=== PATIENT | female | born 1980 | race Caucasian/White ===

== ENCOUNTER 2023-04-24 08:54 | Outpatient (CLI) | payer OTHER, SELFPAY | END 2023-04-24 08:55 | disposition home or self-care (01) | LOC: NFLDREF 04-26 01:29 | PROVIDERS: PCP Physician Assistant Medical; Referring Provider Physician Assistant Medical; Visit Provider Physician Assistant Medical | DX: Z01.818 Encounter for other preprocedural examination (principal); R30.0 Dysuria; N30.00 Acute cystitis without hematuria | CPT/HCPCS: 87086 ==

== ENCOUNTER 2023-05-11 07:35 | Day surgery (SDC) | payer OTHER, SELFPAY ==
[2023-05-11] VITALS (17 sets, daily range): BP systolic 127–176; BP diastolic 71–104; PULSE 62–89; RESP 12–17; TEMP 36.6–36.9; O2SAT 92–96; BMI 34.8
[2023-05-11] MEDS: LACTATED RINGERS 1000 ML 1,000 ML 100 ML IV (08:40)
[2023-05-11] MEDS: CEFAZOLIN 2 GM INJ IVP (08:43)
[2023-05-11] MEDS: SODIUM CHLORIDE 0.9 % (FLUSH) 10 ML SYRINGE IVF (08:44)
[2023-05-11] MEDS: BUPIVACAINE 0.25% 30 ML INJECTION (09:40)
--- NOTE | 2023-05-11 09:50 | PM.GSPRC ---
Operative Note Pre-op diagnosis: 1. Right upper quadrant incisional hernia. 2. s/p open cholecystectomy. Post-op diagnosis: Same Type of Procedure: 1. Open right upper quadrant incisional hernia repair with mesh. Indications: 42-year-old female was seen in clinic with a right upper quadrant pain at her open cholecystectomy incision. Patient did not notice a bulge. She also noticed some bloating in that area. This has been bothering her for the last few years. She noticed that the pain gets worse with exercising. Patient gained some weight recently and noticed that the pain was more bothersome. On clinical exam she had a well-healed open cholecystectomy scar in the right upper quadrant. Patient's exam was limited due to her body habitus but With palpation of the medial scar there was an incisional bulge palpated. Patient was referred for a CT scan to evaluate her incisional hernia further. On her CT scan she was found to have at least 2 hernia defects in the medial part of her open cholecystectomy incision. Given patient's symptoms and her clinical exam and CT findings, an open incisional hernia repair was recommended. The procedure was discussed in detail. The risks associated procedure including infection, bleeding, injury to intra-abdominal organs, and hernia recurrence were all discussed with the patient, and she agreed to proceed. Procedure Description: After discussing the risks and benefits of the procedure, the patient signed informed consent.? The operative site was marked and the patient was brought to the operating room and placed on the operating table in supine position.? Care was taken to pad the patient's pressure points.?? The patient was then intubated by anesthesia.?? The operative site was then prepped and draped in the usual sterile fashion.? A time-out was then performed. Local anesthetic was injected at the surgical site. A medial right upper quadrant surgical incision was made with a scalpel through a previously well-healed surgical scar. Subcutaneous fat was divided with cautery down to the anterior fascia. A medial incisional hernia opening was identified. The fascia was grasped with Daniel clamps and preperitoneal space was developed for mesh placement. The fascia was palpated superior medially and inferior laterally, and 2 additional small openings were noted in the fascia superior medially. The 2 separate hernia openings were connected by less than 1 cm fascial bridge and this was divided to create a single common opening. Additional preperitoneal space was developed for mesh placement. Hemostasis was achieved with cautery. The common fascial defect was approximately 5 x 3 cm. When sufficient space was developed for mesh placement, an 8 cm in diameter Ventralex ST mesh was placed into the preperitoneal space and secured in place to the fascia with interrupted 0-0 Nurolon stitches. The anterior fascia was then closed over the mesh with a running 2-0 Vicryl suture. Additional local anesthetic was injected at the surgical site. Subcutaneous fat was reapproximated with interrupted 2-0 Vicryl sutures. The dermis was then reapproximated with interrupted 3-0 Vicryl sutures. The skin was closed with a running 4-0 Monocryl stitch. Steri-Strips and sterile dressing were placed over the incision. All counts were correct at the end of the case. ? The patient was then woken and transported to the recovery area in stable condition. ? The patient tolerated the procedure well. Findings: 3 fascial defects in the medial surgical incision, all connected into a common fascial defect. The hernia was repaired with mesh. [facility] Surgeon: Venita Giang MD Estimated blood loss (mL): 5 Condition: stable Disposition: PACU Date of procedure: 05/11/23
--- NOTE | 2023-05-11 09:55 | W.ANESCHARGE ---
Anesthesia Charges Start Date/Time Anesthesia Start Date: 05/11/23 Anesthesia Start Time: 08:33 Stop Date/Time Anesthesia Stop Date: 05/11/23 Anesthesia Stop Time: 09:54
[2023-05-11] MEDS: fentaNYL 100 MCG/2 ML inj 50 MCG IVP ×2 (09:58→10:08)
[2023-05-11] MEDS: HYDROmorphone 0.5 mg/0.5 ml inj IVP (10:22)
--- NOTE | 2023-05-11 10:43 | SUR.PHASEI ---
patient met discharge criteria per anesthesia
--- NOTE | 2023-05-11 11:56 | SUR.PHASEII ---
Pt up to the restroom, voided at 1145. Pt tolerated crackers and sprite.
[2023-05-11] MEDS: HYDROCODONE-ACETAMIN 5-325 MG 1 TAB PO ×2 (12:00→12:24)
== END 2023-05-11 12:43 | disposition home or self-care (01) ==
PROVIDERS: PCP Physician Assistant Medical; Visit Provider Surgery
PROC: (CPT 49593; principal; 2023-05-11 08:30)
DX: K43.2 Incisional hernia without obstruction or gangrene (principal)
CPT/HCPCS: 49593; 00752; A9270; C1781; J0330; J0665; J0690; J1100; J1170; J1885; J2250; J2405; J2704; J3010; J7120

== ENCOUNTER 2023-11-04 11:48 | Outpatient (CLI) | payer OTHER, SELFPAY | END 2023-11-04 11:49 | disposition home or self-care (01) | LOC: NFLDREF 11-06 08:25 | PROVIDERS: PCP Physician Assistant Medical; Referring Provider Physician Assistant Medical; Visit Provider Physician Assistant | DX: N30.01 Acute cystitis with hematuria (principal) | CPT/HCPCS: 87086; 87186 ==

== ENCOUNTER 2024-04-04 14:28 | Outpatient (CLI) | payer OTHER, SELFPAY ==
--- NOTE | 2024-04-04 14:40 | CRLHL7_ITS ---
For Patients: As a result of the Century Cures Act, medical imaging exams and procedure reports are released immediately into your electronic medical record. You may view this report before your referring provider. If you have questions, please contact your health care provider. BILATERAL SCREENING MAMMOGRAM WITH COMPUTER-AIDED DETECTION AND TOMOSYNTHESIS TECHNIQUE: CC and MLO views were obtained. These mammographic images have been obtained using full-field digital technique. These mammographic images were interpreted with the benefit of computer-aided detection. Breast Tomosynthesis was used in this interpretation. COMPARISON FILM: 01/14/23, 01/19/23 (left). FINDINGS: There are scattered areas of fibroglandular density IMPRESSION: There is no radiographic evidence for malignancy. ASSESSMENT: BI-RADS Category 1: Negative RECOMMENDATION: Routine screening mammogram in 1 year. A lay language report of this examination will be provided to the patient. Saeid Parks M.D. Diagnostic Radiologist [email or web address] Transcribed: 3:24 p.navya givens/Dictated by: Saeid Parks MD @ 04/06/2024 11:12:00 AM (Electronically Signed)
== END 2024-04-04 14:29 | disposition home or self-care (01) ==
LOC: MAMMO 14:29
PROVIDERS: PCP Physician Assistant Medical; Visit Provider Physician Assistant Medical
DX: Z12.31 Encounter for screening mammogram for malignant neoplasm of breast (principal)
CPT/HCPCS: 77063; 77067

== ENCOUNTER 2024-06-08 16:40 | Outpatient (CLI) | payer OTHER, SELFPAY ==
--- OUTSIDE RECORDS SUMMARY | 2024-06-08 16:42 | XMS_ITS | Clinical Summary ---
Author Organization [facility] Address [place], [place] [address] Care Team Providers Care Flakeboard Line Tender Name Role Phone Pcp, No Primary Care Provider Unavailabl e Pcp, No Unavailable Unavailable Allergies No known active allergies Medications No known medications Active Problems No known active problems Encounters Date Type Department Care Team Description 04/25/2024 Nurse Triage [facility] [address] [place] [address] Pcp, No Abdominal Pain from Last 3 Months Social History Tobacco Use Types Packs/Day Years Used Date Smoking Tobacco: Every Day Alcohol Use Standard Drinks/Week Comments No 0 (1 standard drink = 0.6 oz pur e alcohol) Sex and Gender Information Value Date Recorded Sex Assigned at Not on file Gender Identity Not on file Sexual Orientation Not on file Obstetrics History Last Filed Vital Signs Vital Sign Reading Time Taken Comments Blood Pressure 162/106 05/18/2015 9:32 PM CDT Pulse 96 05/18/2015 8:28 PM CDT Temperature 36.9 ??C (98.5 ??F) 05/18/2015 8:28 PM CD T Respiratory Rate 16 05/18/2015 8:28 PM CDT Oxygen Saturation 98% 05/18/2015 8:28 PM CDT Inhaled Oxygen Concentration - - Weight 81.6 kg (180 lb) 05/18/2015 8:28 PM CDT Height - - Body Mass Index - - Plan of Treatment Health Maintenance Due Date Last Done Comments Tdap 1991 Depression screening for age 12+ 1992 HIV for age 15-65 1995 BMI (ht and wt on same day) for age 18+ 1998 Hepatitis C screening for ag e 18-79 1998 Tetanus booster 2000 Pap test for age 21-65 06/16/2022 9, 06/16/2019 COVID-19 vaccine series (2023- season) 2024 Influenza for age 9-49 04/10/2024 Pneumococcal series for age 6-64 Aged Out No longer eligible b ased on patient's age to complete this topic Procedures Procedure Name Priority Date/Time Associated Diagnosis Comments GRINDER MACHINE SETTER THIN PREP PAP SCREEN IMAGED Routine 06/16/2019 8:00 AM CHEESE PANCAKE ROLLER from Last 3 Months or Most Recently Relevant to Health Maintenance Results * GRINDER MACHINE SETTER THIN PREP PAP SCREEN IMAGED (06/16/2019 8:00 AM CHEESE PANCAKE ROLLER) Case Report Gynecologic Cytology Report ? Case: [id number] ? Authorizing Provider: ??Pete Mejia PA-C ? Collected: ? 06/16/2019 0800 ? Ordering Location: ? [facility] ?Received: ?06/17/2019 0901 ? First Screen: ?Richar Matt ? Specimen: ?GRINDER MACHINE SETTER ThinPrep Vial Screening, Cervical/Vaginal ? 06/29/2019 1:38 PM [facility] [[email or web address]] ENTRAL LABORATORY INTERPRETATION/ RESULT NEGATIVE FOR INTRAEPITHELIAL LESION OR MALIGNANCY (NIL) (none) 06/29/2019 1:38 PM [facility] [[email or web address]] ENTROK LABORATORY NISM(S) Shift in gilda suggestive of bacterial vaginosis 06/29/2019 1:38 PM [facility] [[email or web address]] ENTRAL LABORATORY SPECIMEN ADEQUACY Satisfactory for evaluation No endocervical component seen 06/29/2019 1:38 PM [facility] [[email or web address]] ENTRAL LABORATORY HPV REQUEST HPV and PAP 06/29/2019 1:38 PM [email or web address] Date of LMP 06/06/2019 06/29/2019 1:38 PM [facility] [email or web address] ENTRAL LABORATORY Last Pap Date 06/29/2019 1:38 PM [facility] [[email or web address] ENTRAL LABORATORY Comment:4years Last Pap Result NIL 9 1:38 PM [facility] [[email or web address] Automated Review Successful 06/29/2019 1:38 PM [facility] [[email or web address]] ENTRAL LABORATORY Comment:Specimen processed s uccessfully by automated billet sawyer device, ThinPrep Imaging System, [employer] ANCILLARY TESTING GRINDER MACHINE SETTER HPV Ordered, Please see separate report 06/29/2019 1:38 PM [facility] [[email or web address]] ENTRAL LABORATORY Note The pap test is a screening technique, not a diagnostic procedure. ??It is used primarily to screen for squamous cancers and precursor lesions. ??Published studies have shown that it is subject to both false negative and false positive results. ??The pap test should not be used as the sole means to diagnose or exclude pre-malignant and malignant lesions. Cytology is screened and interpreted at [facility] Laboratory - [address], [place] [address] and [facility] - [address] [place] [address]; [place] [address] and [facility] - [address]; [place] [address] and [facility] [address]; [place] [address] 06/29/2019 1:38 PM [facility] [[email or web address]] ENTRAL LABORATORY Other (Cervical/Vagina l) 06/16/2019 8:00 AM CHEESE PANCAKE ROLLER 06/17/2019 9:01 AM CHEESE PANCAKE ROLLER Pete Mejia PA-C PATHOLOGY/CYTOLOGY [facility]AL LABORATORY [address] [place] [address], from Last 3 Months or Most Recently Relevant to Health Maintenance Care Teams Flakeboard Line Tender Relationship Specialty Start Date End Date Pcp, No . PCP - General 05/18/15 Pcp, No . 05/18/15
--- NOTE | 2024-06-08 16:45 | CRLHL7_ITS ---
For Patients: As a result of the Century Cures Act, medical imaging exams and procedure reports are released immediately into your electronic medical record. You may view this report before your referring provider. If you have questions, please contact your health care provider. INDICATION : Pain. Hernia repair TECHNIQUE : CT scan abdomen pelvis. 97 cc of IV contrast Isovue. Exam was performed with a Valsalva maneuver. FINDINGS : Abdominal wall: Diastasis of the rectus abdominis muscles with thinning of the right rectus. Umbilical protrusion, bulging of the fascia but the fascia is intact. No herniation of bowel loops. No fluid collections. Liver: Unremarkable gallbladder is absent. Spleen: Splenic cyst with minimal calcification 2.8 centimeters upper anterior and benign calcifications Adrenal glands and pancreas: Unremarkable Kidneys: Nonobstructing calcification small upper pole left kidney. No hydronephrosis. Lymph nodes: No adenopathy GI tract: Unremarkable the stool volume is upper normal. Appendix unremarkable Pelvis: Decompressed urinary bladder. Small bladder diverticulum. No adenopathy or free fluid. Lung bases: Lung bases are clear Skeletal: Unremarkable IMPRESSION : 1. Diastasis of the rectus abdominis and protrusion/eventration at the level of the umbilicus. No herniation of bowel loops. 2. Incidental benign splenic cyst and nonobstructing upper pole left renal calcification. Please note that all CT scans at this facility use dose modulation, iterative reconstruction, and/or weight-based dosing when appropriate to reduce radiation dose to as low as reasonably achievable. Dictated by Cezar Chavez MD @ 06/09/2024 12:26:41 PM (Electronically Signed)
== END 2024-06-08 16:41 | disposition home or self-care (01) ==
LOC: CT 16:40
PROVIDERS: PCP Physician Assistant Medical; Visit Provider Surgery
DX: K43.2 Incisional hernia without obstruction or gangrene (principal); M62.08 Separation of muscle (nontraumatic), other site; D73.4 Cyst of spleen
CPT/HCPCS: 74177; Q9967

== ENCOUNTER 2024-06-28 08:25 | Outpatient (CLI) | payer OTHER, SELFPAY ==
--- OUTSIDE RECORDS SUMMARY | 2024-07-02 00:34 | XMS_ITS | Clinical Summary ---
Author Organization [facility] Address [place], [place] [address] Care Team Providers Care Pattern Grader Name Role Phone Pcp, No Primary Care Provider Unavailabl e Pcp, No Unavailable Unavailable Allergies No known active allergies Medications No known medications Active Problems No known active problems Encounters Date Type Department Care Team Description 04/25/2024 Nurse Triage [facility] [address] [place] [address] Pcp, No Abdominal Pain from Last 3 [...] 96 05/18/2015 8:28 PM CDT Temperature 36.9 C (98.5 F) 05/18/2015 8:28 PM CDT Respiratory Rate 16 05/18/2015 8:28 PM CDT [...] Procedure Name Priority Date/Time Associated Diagnosis Comments BENEFITS DIRECTOR THIN PREP PAP SCREEN IMAGED Routine 06/16/2019 8:00 AM LANG INTERPRETER from Last 3 Months or Most Recently Relevant to Health Maintenance Results * BENEFITS DIRECTOR THIN PREP PAP SCREEN IMAGED (06/16/2019 8:00 AM LANG INTERPRETER) Case Report Gynecologic Cytology Report Case: [id number] Authorizing Provider: Pete Mejia PA-C Collected: 06/16/2019 0800 Ordering Location: [facility] Received: 06/17/2019 0901 First Screen: Richar Matt Specimen: BENEFITS DIRECTOR ThinPrep Vial Screening, Cervical/Vaginal 06/29/2019 1:38 PM LANG INTERPRETER [employer]-[facility] ENTRAL LABORATORY INTERPRETATION/ RESULT NEGATIVE FOR INTRAEPITHELIAL LESION OR MALIGNANCY (NIL) (none) 06/29/2019 1:38 PM LANG INTERPRETER [employer] ENTRAL LABORATORY NISM(S) Shift in gilda suggestive of bacterial vaginosis 06/29/2019 1:38 PM LANG INTERPRETER [employer] [facility]-C ENTRAL LABORATORY SPECIMEN ADEQUACY Satisfactory for evaluation No endocervical component seen 06/29/2019 1:38 PM LANG INTERPRETER [employer] ENTRAL LABORATORY HPV REQUEST HPV and PAP 06/29/2019 1:38 PM LANG INTERPRETER [employer] ENTRAL LABORATORY Date of LMP 06/06/2019 06/29/2019 1:38 PM LANG INTERPRETER [employer] ENTRAL LABORATORY Last Pap Date 06/29/2019 1:38 PM [facility] Comment:4years Last Pap Result NIL 9 1:38 PM LANG INTERPRETER [facility]- ENTRDC LABORATORY Automated Review Successful 06/29/2019 1:38 PM LANG INTERPRETER [facility] ENTRAL LABORATORY Comment:Specimen processed s uccessfully by automated metallurgical laboratory assistant device, ThinPrep Imaging System, [employer] ANCILLARY TESTING BENEFITS DIRECTOR HPV Ordered, Please see separate report 06/29/2019 1:38 PM LANG INTERPRETER [facility]- ENTRAL LABORATORY Note The pap test is a screening technique, not a diagnostic procedure. It is used primarily to screen for squamous cancers and precursor lesions. Published studies have shown that it is subject to both false negative and false positive results. The pap test should not be used as the sole means to diagnose or exclude pre-malignant and malignant lesions. Cytology is screened and interpreted at [facility] - [address], [place] [address] and [facility] - [address]; [place] [address] and [facility] - [address]; [place] [address] and [facility] [address]; [place] [address] 06/29/2019 1:38 PM LANG INTERPRETER [facility] Other (Cervical/Vagina l) 06/16/2019 8:00 AM LANG INTERPRETER 06/17/2019 9:01 AM LANG INTERPRETER Pete Mejia PA-C PATHOLOGY/CYTOLOGY [facility] [address] [place] [address], from Last 3 Months or Most Recently Relevant to Health Maintenance Care Teams Pattern Grader Relationship Specialty Start Date End Date Pcp, No . PCP - General 05/18/15 Pcp, No . 05/18/15
== END 2024-06-28 08:26 | disposition home or self-care (01) ==
LOC: NFLDREF 07-02 00:32
PROVIDERS: PCP Physician Assistant Medical; Referring Provider Physician Assistant Medical; Visit Provider Physician Assistant Medical
DX: I10 Essential (primary) hypertension (principal); Z13.6 Encounter for screening for cardiovascular disorders; Z13.29 Encounter for screening for other suspected endocrine disorder
CPT/HCPCS: 80053; 80061; 84443

== ENCOUNTER 2024-09-21 10:46 | Outpatient (CLI) | payer OTHER, SELFPAY ==
[2024-09-21 15:09] LABS: Bacterial Vaginosis* POSITIVE (Negative); Candida glab/krus NOT DETECTED (No Detected); Candida species NOT DETECTED (No Detected); Trichomonas vaginalis NOT DETECTED (No Detected)
[2024-09-21 15:37] LABS: Chlamydia DNA Amplified* NOT DETECTED (No Detected); GC DNA Amplified* NOT DETECTED (No Detected)
== END 2024-09-21 10:47 | disposition home or self-care (01) ==
PROVIDERS: PCP Physician Assistant Medical; Visit Provider Registered Nurse
DX: Z11.3 Encounter for screening for infections with a predominantly sexual mode of transmission (principal); R79.89 Other specified abnormal findings of blood chemistry; N76.0 Acute vaginitis; B96.89 Other specified bacterial agents as the cause of diseases classified elsewhere
CPT/HCPCS: 81513; 82306; 87086; 87481; 87491; 87591; 87661

== ENCOUNTER 2024-09-22 11:29 | Outpatient (CLI) | payer OTHER, SELFPAY ==
[2024-09-25 07:45] LABS: HPV Source Vaginal; HPV, High Risk by TMA Not Detected
== END 2024-09-22 11:30 | disposition home or self-care (01) ==
PROVIDERS: PCP Physician Assistant Medical; Visit Provider Registered Nurse
DX: Z12.4 Encounter for screening for malignant neoplasm of cervix (principal)
CPT/HCPCS: 87624; 87625; 88141; 88142

== ENCOUNTER 2025-04-24 16:48 | Outpatient (CLI) | payer OTHER, SELFPAY | END 2025-04-24 16:49 | disposition home or self-care (01) | LOC: NFLDREF 04-30 03:42 | PROVIDERS: PCP Physician Assistant Medical; Referring Provider Physician Assistant Medical | DX: R30.0 Dysuria (principal); N39.0 Urinary tract infection, site not specified; R35.0 Frequency of micturition | CPT/HCPCS: 87086; 87186 ==

== ENCOUNTER 2025-08-08 17:51 | Outpatient (CLI) | payer OTHER, SELFPAY ==
--- NOTE | 2025-08-08 18:20 | CRLHL7_ITS ---
For Patients: As a result of the Century Cures Act, medical imaging exams and procedure reports are released immediately into your electronic medical record. You may view this report before your referring provider. If you have questions, please contact your health care provider. INDICATION: BILATERAL SCREENING MAMMOGRAM, ASYMPTOMATIC 45 Y/O FEMALE COMPARISON: 04/04/2024, 01/14/2023 TECHNIQUE: Digital mammogram in CC and MLO projections including computer-aided detection (CAD) and tomosynthesis. BREAST COMPOSITION: There are scattered areas of fibroglandular density. FINDINGS: No suspicious findings. ASSESSMENT: BI-RADS 1 Negative RECOMMENDATION: Annual screening mammogram. A lay language report of this examination will be provided to the patient. Dictated by: Saeid Parks MD @ 08/09/2025 09:37:15 (Electronically Signed)
== END 2025-08-08 17:52 | disposition home or self-care (01) ==
LOC: MAMMO 17:52
PROVIDERS: PCP Physician Assistant Medical; Visit Provider Physician Assistant Medical
DX: Z12.31 Encounter for screening mammogram for malignant neoplasm of breast (principal)
CPT/HCPCS: 77063; 77067